=== PATIENT | female | born 1995 | race Two or more races ===

== ENCOUNTER 2025-05-16 13:12 | Outpatient (AMB) | payer MEDICAID, SELFPAY ==
--- NOTE | 2025-05-16 13:35 | OBCLNT_ITS ---
Vital Signs 05/16/25 13:48 Height 1.6 m Height Method Stated Weight 54.544 kg Weight Measurement Method Standing Scale BMI 21.3 BP 101/62 Blood Pressure Source Automatic Cuff Blood Pressure Location Left Upper Arm Position Sitting Respiration 16 Pulse 81 Pulse Source Monitor Temp 98 F Temp Source Oral Pulse Oximetry (%) 98 Oxygen Delivery Method Room Air Allergies/Home Meds Allergies & Medications Allergies No Known Allergies Allergy (Verified 05/16/25 13:50) Medication Reconciliation Vitamin * 1 tab PO QDAY #0 tabs 10/11/16 [History Confirmed 05/16/25] ferrous sulfate 325 mg (65 mg iron) tablet (Feosol) 325 mg PO QDAY #0 tabs 10/11/16 [History Confirmed 05/16/25] doxylamine 10 mg-pyridoxine (vit B6) 10 mg tablet,delayed release (Diclegis) 1 tab PO TID #90 tabs 05/16/25 [Rx] Intake Visit Data Collection New Patient or Established: Established Patient (seen at [facility] within 3 years) Reason for Visit:: INITIAL CARE Seen by Clinical Staff ONLY (RN/MA): No Electroencephalographic Technician Required: No Do You Feel Safe at Home: Yes Authorities Contacted: N/A PCP or OBGYN visit in last 3 months: Yes Hx Now: Yes Are you currently on any form of Control: No Pain Present Currently: No Pain Scale Used: Dueñas-Mederos/Numerical Pain scale:: 0 Smoking Status Smoking Status: Never smoker Immunizations Flu Vaccine in the Last 12 Months: No Flu Vaccine Exclusion Criteria: Refused by Patient Questionnaires Covid-19 Vaccine Questionnaire Has patient been vacinated for Covid-19 Have you been vacinated for Covid-19: No PHQ-9 PHQ-2 Over the last 2 weeks, how often have you been bothered by any of the following problems? 1. Little interest or pleasure in doing things: not at all 2. Feeling down, depressed, or hopeless: not at all Total score: 0 PHQ-9 3. Trouble falling or staying asleep, or sleeping too much: Not at all 4. Feeling tired or having little energy: Not at all 5. Poor appetite or overeating: Not at all 6. Feeling bad about yourself - or that you are a failure or have let yourself or your family down: Not at all 7. Trouble concentrating on things, such as reading the newspaper or watching television: Not at all 8. Moving or speaking so slowly that other people could have noticed? - Or the opposite - being so fidgety or restless that you have been moving around a lot more than usual: not at all 9. Thoughts that you would be better off or of hurting yourself in some way: Not at all Total score: 0 Source: Developed by Drs. David Munoz, Berna Craven, Stephan Martins and colleagues, with an educational amber from [employer]. Depression screen completed yes Social History Living Situation History Marital Status: Lives With: Family Housing: House Tobacco History Smoking Status: Never smoker Second Hand Smoke Exposure: No Alcohol History Alcohol Intake: Never Domestic Abuse History Do You Feel Safe at Home: Yes History of Present Illness HPI Narrative ?29 Years old G4?P3?at gestational age 8 weeks ?based on last menstrual period of dated/ previous 2 sections No complaints so far Here for first visit LPS LMP 03/21/2025 Ultrasound medical problems Allergies Surgical history social history OB Initial Visit OB Flowsheet OB Flowsheet Initial Weight: Not Recorded Date -?-?-?-?-?-?-?-?-?-?-?-?- EGA Weight BP Alb Glu CTX Pres Fundal ht FHR Mov Dilation Station Effacement Hx Notes Visit Note 05/16/25 -?-?-?-?-?-?-?-?-?-?-?-?- 8w 0d 54.544 kg 101/62 168 Menstrual History Menstrual reliability: definite Flow: normal Menstrual regularity: regular Monthly: Yes Age at menarche: 10 On control pills at conception: No Associated symptoms (LMP): Reports nausea, fatigue and breast tenderness OB History : 4 Para: 3 # of Living Children: 3 Delivery History 1st : date: 07/20/11 sex: male Delivery type: vaginal Delivery complications: 4TH DEGREE LACERATION History of depression before or after : No 2nd : date: 04/10/14 sex: female Delivery type: Delivery complications: NONE History of depression before or after : No 3rd : date: 01/17/17 sex: female Delivery type: Delivery complications: NONE History of depression before or after : No Infection History & Risk Evaluation History of STDs: none Genetic Screening & History Genetic Screening/Teratology Counseling - Includes patient, baby's father, or anyone in either family with: 1. Patient's age 35 years or older as of estimated date of delivery: No 2. Thalassemia (Syriac, Khmer, Mediterranean, or Background); MCV less than 80: No 3. Neural Tube Defect (Meningomyelocele, Spina Bifida, or Anencephaly): No 4. Congenital Heart Defect: No 5. Down Syndrome: No 6. David-Sachs (Ashkenazi Catholic, Cajun, German [place]): No 7. Bertha Disease (Ashkenazi Catholic): No 8. Familial Dysautonomia (Ashkenazi Catholic): No 9. Sickle Cell Disease or Trait (): No 10. Hemophilia or other blood disorders: No 11. Muscular Dystrophy: No 12. Cystic Fibrosis: No 13. [place]'s Chorea: No 14. Mental Retardation/Autism: No 15. Other inherited genetic or chromosomal disorder: No 16. Maternal Metabolic Disorder (EG,TYPE 1 Diabetes, PKU): No 17. Patient or baby's father had a child with defects not listed above: No 18. Recurrent loss or a stillbirth: No 19. Medications (including supplements, vitamins, herbs or otc drugs)/illicit/recreational drugs/alcohol since last menstrual period: No 20. Any other: No Infection History 1. Live with someone with TB or exposed to TB: No 2. Rash or viral illness since last menstrual period: No 3. Hepatitis B,C: No Other (see comments) Source: [employer] Review of Systems Review of Systems Systems Reviewed: All systems reviewed, normal except as documented Constitutional Constitutional: Reports fatigue Gastrointestinal Gastrointestinal: Reports system reviewed and no additional complaints, except as documented and Reports nausea Endocrine Endocrine: Reports fatigue Exam Narrative Physical exam: Alert and oriented x 3 no shortness of breath Pain no chest pain no palpitations Chest clear bilaterally no additional sounds, no wheezing no rales CVS regular rate and rhythm No CVAT Abdomen nontender, normal bowel sounds No guarding no rigidity No hernias Office Procedures OBC Clinic LOC & Office Proc's Nursing/Assessment Patient Status: Established Patient OB Clinic Nursing Assessment: Medication Reconciliation, Update PMH in EMR and Vital Signs OB Clinic Coordination of Care: Complex Care and Chronic Disease 1-5, Consent,records obtained, informed consent, Education Simp Pt/Fam, 1 Ins Authorization, Lab and Imaging orders, Results/Orders obtained and Staff clarify orders Special Needs: Heart tones Established Patient Charge Established Patient Point Assignment: 150 Established Patient Point Charge: EP Level 4 (120-155) Assessment & Plan Diagnosis / Problem List (1) Previous section: Status: Acute (2) : Status: Acute Qualifiers: Weeks of gestation: 8 weeks Qualified Code(s): Z3A.08 - 8 weeks g estation of (3) Nausea & vomiting: Status: Acute Assessment and Plan: 29 years old with previous 2 c sections here for initial Ob and is 8 weeks today / ordered Diclegis and also NIPT/ Carrier screen and also first trimester labs follow up 4 weeks Tubal sterilization consent after 20 weeks if desires Plan first trimester labs and NIPT and carrier screening call in Diclegis and follow up in 4 weeks
[2025-05-16 13:48] VITALS: BP 101/62; PULSE 81; RESP 16; TEMP 36.6; O2SAT 98; BMI 21.3
== END 2025-05-16 14:51 | disposition home or self-care (01) ==
LOC: HODSOBC 13:12
PROVIDERS: Supervising Provider Obstetrics & Gynecology; Visit Provider Obstetrics & Gynecology
DX: O09.291 Supervision of pregnancy with other poor reproductive or obstetric history, first trimester (principal); O34.219 Maternal care for unspecified type scar from previous cesarean delivery; O99.891 Other specified diseases and conditions complicating pregnancy; O21.9 Vomiting of pregnancy, unspecified; Z3A.08 8 weeks gestation of pregnancy
CPT/HCPCS: 99214; G0463

== ENCOUNTER 2025-05-24 23:56 | Emergency (ER) | payer MEDICAID, SELFPAY ==
[2025-05-24 23:57] VITALS: BMI 22.3
[2025-05-25 01:04] VITALS: BP 105/69; PULSE 77; RESP 18; TEMP 36.9; O2SAT 99
--- NOTE | 2025-05-25 01:08 | XR_ITS ---
Examination: Complete OB ultrasound, less than 14 weeks, transabdominal Date and time of exam: May 25, 2025, 0139 hours INDICATIONS: Pelvic cramping and vaginal bleeding beginning last night Technique: Obstetrical ultrasound images less than 14 weeks performed via transabdominal imaging Findings: A normal shaped single intrauterine gestation is present in the uterus. CRL 2.7 cm corresponds to 9 weeks 3 days gestational age Cardiac motion 164 bpm Ultrasonographic survey of visible and placental structures unremarkable. Amniotic fluid volume appears appropriate for this estimated gestational age. Right ovary 3.3 cm arterial flow Left ovary 3.1 cm arterial flow IMPRESSION: Viable intrauterine gestation 9 weeks 3 days.
--- NOTE | 2025-05-25 01:09 | PD.EDRME ---
Rapid Medical Screening Exam RME Arrival date/time: 05/24/25 23:56 This is a case of 29-year-old female with no medical history came into the emergency room due to vaginal bleeding and pelvic cramping patient is 9 weeks 4 para 3 Chief Complaint: Vaginal Bleeding Time Seen by Provider: 05/25/25 01:10 Vital signs: Vital Signs Temperature 98.5 F 05/25/25 01:04 Pulse Rate 77 05/25/25 01:04 Respiratory Rate 18 05/25/25 01:04 Blood Pressure 105/69 05/25/25 01:04 Pulse Oximetry (%) 99 05/25/25 01:04 Oxygen Delivery Method Room Air 05/25/25 01:04 Exam: Abdominal soft no normoactive bowel sounds no guarding no rebound no rigidity no tenderness Clinical Impression: Vaginal bleeding in
[2025-05-25 01:14] LABS: Basophils # (Auto) 0.0 Thou/mm3 (0.0-0.2); Basophils % (Auto) 0 % (0-2.5); Eosinophils # (Auto) 0.1 Thou/mm3 (0.0-0.5); Eosinophils % (Auto) 1 % (0-10); Hematocrit 32.5 % (36.0-46.0); Hemoglobin 11.3 g/dL (12.0-16.0); Immature Granulocytes Auto 0.02 Thou/mm3 (0.00-0.00); Lymphocytes # (Auto) 2.5 Thou/mm3 (1.0-4.8); Lymphocytes % (Auto) 25 % (10-50); Mean Corpuscular HGB Conc 34.8 g/dl (31.0-37.0); Mean Corpuscular Hemoglobin 31.2 pg (25.0-35.0); Mean Corpuscular Volume 90 fL (80-100); Monocytes # (Auto) 0.7 Thou/mm3 (0.0-0.8); Monocytes % (Auto) 7 % (0-12); Neutrophils # (Auto) 6.7 Thou/mm3 (1.8-7.7); Neutrophils % (Auto) 66 % (37-80); Nucleated Red Blood Cell # 0.00 Thou/mm3 (0.00-0.00); Nucleated Red Blood Cell % 0 /100 WBC (0); Platelet Count 147 Thou/mm3 (140-440); RDW Standard Deviation 41.0 fL (36.4-46.3); Red Blood Count 3.62 Miln/mm3 (4.00-5.20); White Blood Count 10.1 Thou/mm3 (3.6-11.0)
[2025-05-25 01:39] LABS: Alanine Aminotransferase 21 U/L (10-49); Albumin, Serum 4.3 gm/dL (3.5-5.0); Albumin/Globulin Ratio 1.9 (1.2-2.2); Alkaline Phosphatase 33 U/L (46-116); Anion Gap 8 (7-16); Aspartate Amino Transferase 24 U/L (0-34); BUN/Creatinine Ratio 23 Ratio (12-20); Bilirubin,Total 0.4 mg/dL (0.3-1.2); Blood Urea Nitrogen 14 mg/dL (9-23); Calcium 8.9 mg/dL (8.3-10.6); Calcium (Corrected) 8.9 mg/dL (8.5-10.1); Carbon Dioxide 24.1 mMol/L (20.0-31.0); Chloride 107 mMol/L (98-107); Creatinine (Component) 0.6 mg/dL (0.6-1.3); Estimated Creatinine Clearance 107.4 mL/min (>60); Globulin 2.3 gm/dL (2.3-3.5); Glucose 92 mg/dL (74-106); Osmolality,Calculated 278 (275-295); Potassium 3.8 mMol/L (3.4-5.1); Sodium 139 mMol/L (136-145); Total Protein 6.6 gm/dL (5.7-8.2); eGFR > 60 See Note
--- NOTE | 2025-05-25 02:47 | PRELIM_ITS ---
Obstetric ultrasound (transabdominal). May 25, 2025 at 0139 hours Clinical history: Vaginal bleeding.LMP: 03/21/2025. Technique: Real-time ultrasound was performed using Duplex scanning including arterial inflow, venous outflow, color and spectral Doppler analysis of both ovaries. Comparison: No prior study is available for comparison. Findings: There is an intrauterine gestation with a single live fetus of mean gestational age 9 weeks and 3 days (CRL= 2.7 cm). The yolk sac is demonstrated (not measured on the submitted images). cardiac activity is present at heart rate of 164 beats per minute. Estimated due date by ultrasound is 12/25/2025. The uterus is anteflexed and measures 13.5 x 7.5 x 8.9 cm. The right ovary measures 3.3 x 1.9 x 2.7 cm and demonstrates multiple follicles. The left ovary measures 3.1 x 1.5 x 2.3 cm and demonstrates multiple follicles. Both ovaries demonstrate color flow and spectral waveforms on Doppler evaluation. No evidence of adnexal mass. There is no free fluid in the pelvis. Impression: Intrauterine gestation with a single live fetus of mean gestational age 9 weeks and 3 days. Report Electronically Signed By: Parveen Rubio 05/25/2025 2:46:38 AM [EST]
--- NOTE | 2025-05-25 03:08 | PD.EDVAGBL ---
ED OB Contraction Preg RMI/HPI General Chief complaint: Vaginal Bleeding Stated complaint: 9 WKS PREG VAG BLEEDING Time Seen by Provider: 05/25/25 01:10 Arrival date/time: 05/24/25 23:56 This is a case of 29-year-old female with no medical history came in in the emergency room due to vaginal bleeding today with pelvic cramping patient is 9 weeks 1 para 0 due to persistence of the symptoms this patient decided to sought consult here in the emergency room Limitations: no limitations RME / HPI RME / HPI Narrative: 05/24/25 23:56 This is a case of 29-year-old female with no medical history came into the emergency room due to vaginal bleeding and pelvic cramping patient is 9 weeks 4 para 3 Exam: Abdominal soft no normoactive bowel sounds no guarding no rebound no rigidity no tenderness Impression: Vaginal bleeding in Related Data Home Medications ?Medication ?Instructions ?Recorded ?Confirmed Vitamin * 1 tab PO QDAY #0 tabs 10/11/16 05/16/25 ferrous sulfate 325 mg (65 mg 325 mg PO QDAY #0 tabs 10/11/16 05/16/25 iron) tablet (Feosol) Previous Rx's ?Medication ?Instructions ?Recorded doxylamine 10 mg-pyridoxine (vit 1 tab PO TID #90 tabs 05/16/25 B6) 10 mg tablet,delayed release (Diclegis) Allergies Allergy/AdvReac Type Severity Reaction Status Date / Time No Known Allergies Allergy Verified 05/25/25 00:01 Review of Systems Review of Systems Systems Reviewed: All systems reviewed, normal except as documented Constitutional Constitutional: Reports system reviewed and no additional complaints, except as documented and Reports as per HPI Cardiovascular Cardiovascular: Reports system reviewed and no additional complaints, except as documented and Reports as per HPI Respiratory Respiratory: Reports system reviewed and no additional complaints, except as documented and Reports as per HPI Gastrointestinal Gastrointestinal: Reports system reviewed and no additional complaints, except as documented Musculoskeletal Musculoskeletal: Reports system reviewed and no additional complaints, except as documented and Reports as per HPI Neurologic Neurologic: Reports system reviewed and no additional complaints, except as documented and Reports as per HPI Past Medical History Past Medical History OTHER HISTORY: Positive Blood Transfusions Social History SMOKING STATUS: Never smoker SECOND HAND EXPOSURE: No ED Exam General Limitations: Present no limitations General appearance: Present alert, in no apparent distress and other (Patient is awake alert oriented not in distress nontoxic looking well-hydrated well-nourished) Head Head exam: Present atraumatic, normocephalic and normal inspection Eye Eye exam: Present normal appearance, PERRL and EOMI ENT ENT exam: Present normal exam, normal oropharynx and mucous membranes moist Neck Neck exam: Present normal inspection, full ROM and trachea midline; Absent tenderness, meningismus, lymphadenopathy or thyromegaly Chest Chest inspection: Present normal inspection and symmetric chest wall rise Respiratory Respiratory exam: Present normal lung sounds bilaterally; Absent respiratory distress, wheezes, stridor, accessory muscle use or prolonged expiratory phase Cardiovascular Cardiovascular exam: Present regular rate, normal rhythm and normal heart sounds; Absent bradycardia, tachycardia, irregular rhythm, systolic murmur or diastolic murmur Abdominal Exam Abdominal exam: Present soft, normal bowel sounds and other (Gravid uterus); Absent distention, tenderness, guarding, rebound, rigidity, diminished bowel sounds, hyperactive bowel sounds, hypoactive bowel sounds, obturator sign, Mary's sign, Rovsing's sign, tenderness at McBurney's Point, pulsatile mass or hernia Extremities Exam Extremities exam: Present normal inspection and full ROM Back Exam Back exam: Present normal inspection and full ROM Neurological Exam Neurological exam: Present alert, oriented X3, CN II-XII intact, normal gait and reflexes normal; Absent motor sensory deficit Psychiatric Psychiatric exam: Present normal affect and normal mood Skin Skin exam: Present warm, dry, intact, normal color and other (Excellent skin turgor) Course Quality Measures none Orders Category Date Time Status Bedside Blood Glucose Q1HR Care 05/25/25 00:28 Active NPO NEEDED Care 05/25/25 00:28 Active US OB <= 14 weeks fetus Stat Exams 05/25/25 01:08 Taken ABO/RH Type Stat Lab 05/25/25 00:57 Completed Beta HCG,Quantitative Stat Lab 05/25/25 00:57 Completed CBC [CBC] Stat Lab 05/25/25 00:57 Completed CMP [Comprehensive Metabolic Panel] Stat Lab 05/25/25 00:57 Completed Urinalysis, C/S if Indicated Stat Lab 05/25/25 00:29 Ordered Vital Signs Vital signs: Vital Signs Temperature 98.5 F 05/25/25 01:04 Pulse Rate 77 05/25/25 01:04 Respiratory Rate 18 05/25/25 01:04 Blood Pressure 105/69 05/25/25 01:04 Pulse Oximetry (%) 99 05/25/25 01:04 Oxygen Delivery Method Room Air 05/25/25 01:04 Oxygen saturation is 99% on room air Vaginal Bleeding MDM Narrative MDM Narrative: This is a case of 29-year-old female with no medical history came in in the emergency room due to vaginal bleeding today with pelvic cramping patient is 9 weeks 1 para 0 due to persistence of the symptoms this patient decided to sought consult here in the emergency room physical examination patient is awake alert oriented not in distress nontoxic looking well-hydrated well-nourished abdominal exam is benign nonsurgical no guarding no rebound no rigidity mild tenderness of suprapubic area negative psoas negative obturator negative Rovsing's negative McBurney's negative Mary sign negative CVA tenderness blood test showed no leukocytosis no anemia kidney and liver function is normal no electrolyte imbalance urinalysis is normal patient beta-hCG [id number] patient is A+ on blood type patient ultrasound showed intrauterine with single live fetus of 9 weeks and 3 days with heart tone of 164/min based on my physical examination and history patient symptoms suggestive of threatened patient was advised to follow-up with PCP in 2 days for reevaluation and to be referred to OB numerical control router operator for further evaluation and treatment of threatened and for checkup for any worsening symptoms or any emergent concern return emergently in the emergency room or call 911 continue multivitamins keep hydrated no sex until cleared by primary care physician is advised Patient was discharged with comfortable condition walking with stable gait. Patient verbalized no further complains explained diagnosis and answered patient question. Patient is comfortable with the proposed management plan including the need to follow up with his/her primary care physician and any specialist if applicable Discussed patient for any urgent condition or worsening sx, He/She needed to go to emergency room immediately or call 911. Patient acknowledge the responsibility to follow up as instructed and to monitor her/his symptoms. For any persistence of the symptoms for more than 3-5 days return precaution advised. Discussed the result of the test and was given printed discharge instruction Patient data External records reviewed:: [facility] previous records Clinical information provided by:: patient Social determinants that could affect healthcare access:: none Patient has the following chronic illnesses:: None How is presenting disease/condition affected by chronic disease/condition?: no chronic disease Evaluation data The following diagnostics were reviewed and interpreted by me:: lab results and radiology exam(s) Lab and/or radiology exams considered but not ordered:: Reviewed Interpretation Summary: Reviewed Medications / Prescriptions Medications or Prescriptions considered but not ordered:: Given Medication administrations:: Given Consultations Consultation(s) initiated? (list below): No Diagnosis Vaginal Bleeding Differential Diagnosis: missed , threatened , incomplete , ectopic without intrauterine and vaginal bleeding Most likely diagnosis given after review of the tests above:: Threatened in early Admission Indicated Admission indicated?: not indicated Explain why admission is indicated or not indicated:: Not indicated Admission Request Was there a request for admission?: No Disposition Plan Disposition Plan: Discharge Discharge Attestation Discharge Attestation: The patient and all family members were given an opportunity to ask questions and understood the discharge instructions. Discharge instructions specifically effects, indications for sooner follow up or return to the emergency department, and the expected course of current diagnosis. Patient condition: Stable Discharge Plan Plan Patient Disposition: HOME (Self Care) Patient condition on transfer: Stable Prescriptions/Referrals Prescriptions/Med Rec: No Action doxylamine-pyridoxine (vit B6) [Diclegis] 10-10 mg tablet,delayed release (DR/EC) 1 tab PO TID Qty: 90 0RF Vitamin * 1 EACH tablet 1 tab PO QDAY Qty: 0 ferrous sulfate [Feosol] 1 TAB tablet 325 mg PO QDAY Qty: 0 Referrals: Aldo Pollock MD [Primary Care Provider, Family Practice] - In 1 week Problem List Clinical Impression: Threatened in early Patient/Caregiver Discharge Instructions Education Materials: ED Possible Miscarriage ... Additional Instructions: Follow-up with your primary care physician in 2 days for reevaluation and to be referred to OB numerical control router operator for further evaluation and treatment of threatened in early it is very important to see a OB numerical control router operator in 2 days for reevaluation of threatened in early and checkup if not seen in 2 days return to the emergency room for repeat beta-hCG and pelvic ultrasound for any worsening symptoms or any emergent concern return precaution in the ER is advised continue to take your multivitamins increase water intake keep hydrated no sex until cleared by your primary care physician pelvic rest is advised Print Language: [place] Stand Alone Forms: [employer] Patient Portal Info Letter PA/NETWORK OPERATIONS ANALYST Supervising Physician PA/NETWORK OPERATIONS ANALYST Supervising Physician: Dr. Sneha Dave
== END 2025-05-25 05:29 | disposition home or self-care (01) ==
PROVIDERS: Emergency Provider Emergency Medicine; PCP Family Medicine
DX: O20.0 Threatened abortion (principal); Z3A.09 9 weeks gestation of pregnancy
CPT/HCPCS: 36415; 76801; 80053; 81001; 84702; 85025; 86900; 86901; 99283

== ENCOUNTER 2025-05-28 08:13 | Outpatient (AMB) | payer MEDICAID, SELFPAY ==
[2025-05-28 08:39] VITALS: BP 106/72; PULSE 95; RESP 18; TEMP 36.7; O2SAT 98; BMI 22.4
--- NOTE | 2025-05-28 08:39 | OBCLNT_ITS ---
Vital Signs 05/28/25 08:39 Height 1.57 m Height Method Stated Weight 55.111 kg Weight Measurement Method Standing Scale BMI 22.4 BP 106/72 Blood Pressure Source Automatic Cuff Blood Pressure Location Left Upper Arm Position Sitting Respiration 18 Pulse 95 Pulse Source Monitor Temp 98.1 F Temp Source Oral Pulse Oximetry (%) 98 Oxygen Delivery Method Room Air Allergies/Home Meds Allergies & Medications Allergies No Known Allergies Allergy (Verified 05/28/25 08:40) Medication Reconciliation Vitamin * 1 tab PO QDAY #0 tabs 10/11/16 [History Confirmed 05/28/25] ferrous sulfate 325 mg (65 mg iron) tablet (Feosol) 325 mg PO QDAY #0 tabs 10/11/16 [History Confirmed 05/28/25] doxylamine 10 mg-pyridoxine (vit B6) 10 mg tablet,delayed release (Diclegis) 1 tab PO TID #90 tabs 05/16/25 [Rx Confirmed 05/28/25] Intake Visit Data Collection New Patient or Established: Established Patient (seen at [facility] within 3 years) Reason for Visit:: CARE Seen by Clinical Staff ONLY (RN/MA): No Wagon Person Required: No Do You Feel Safe at Home: Yes Authorities Contacted: N/A PCP or OBGYN visit in last 3 months: Yes Hx Now: Yes Are you currently on any form of Control: No Pain Present Currently: No Pain Scale Used: Dueñas-Mederos/Numerical Pain scale:: 0 Smoking Status Smoking Status: Never smoker Immunizations Flu Vaccine in the Last 12 Months: No Flu Vaccine Exclusion Criteria: Refused by Patient Questionnaires Covid-19 Vaccine Questionnaire Has patient been vacinated for Covid-19 Have you been vacinated for Covid-19: No PHQ-9 PHQ-2 Over the last 2 weeks, how often have you been bothered by any of the following problems? 1. Little interest or pleasure in doing things: not at all 2. Feeling down, depressed, or hopeless: not at all Total score: 0 PHQ-9 3. Trouble falling or staying asleep, or sleeping too much: Not at all 4. Feeling tired or having little energy: Not at all 5. Poor appetite or overeating: Not at all 6. Feeling bad about yourself - or that you are a failure or have let yourself or your family down: Not at all 7. Trouble concentrating on things, such as reading the newspaper or watching television: Not at all 8. Moving or speaking so slowly that other people could have noticed? - Or the opposite - being so fidgety or restless that you have been moving around a lot more than usual: not at all 9. Thoughts that you would be better off or of hurting yourself in some way: Not at all Total score: 0 Source: Developed by Drs. David Munoz, Berna Craven, Stephan Martins and colleagues, with an educational amber from [employer]. Depression screen completed yes Social History Living Situation History Lives With: Family Housing: House Tobacco History Smoking Status: Never smoker Second Hand Smoke Exposure: No Alcohol History Alcohol Intake: Never Domestic Abuse History Do You Feel Safe at Home: Yes History of Present Illness HPI Narrative visit and ER follow-up for pelvic cramping and vaginal bleeding that started the night before ER visit on 05-25-2025 Staci Prado is a 29-year-old at 9 weeks and 5 days gestation presenting for visit and emergency room follow-up after experiencing vaginal bleeding and pelvic cramping. The patient was seen in the emergency room on May 25, 2025, after developing pelvic cramping and vaginal bleeding that started the previous night. She reports that after attending a football game and returning home, she noticed bright red blood on her underwear and in the toilet when using the restroom. This was described as a single episode of bleeding that has not recurred since that time. The patient has a significant obstetric history including one vaginal delivery complicated by a fourth-degree laceration, followed by two deliveries. She is currently taking vitamins and reports no other current issues. This represents only her second visit for this , having previously seen Dr. Alvarez in this office for her initial visit. 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 She reports that after attending a football game and returning home, she noticed bright red blood on her underwear and in the toilet when using the restroom. This was described as a single episode of bleeding that has not recurred since that time. - Activity restrictions for 2 weeks from bleeding episode (avoid lifting weights, over-straining, excessive physical activity) - Work excuse provided until after Thank sgiving - Follow-up appointment scheduled in 3 w [facility] with Dr. Alvarez - Continue vitamins - Return if bleeding recurs CIERRA Calculator Estimated Delivery Date Method Current WG Current Estimate 12/26/25 LMP (Certain) 9w 5d Notes Visit Date: 05/28/25 Last Updated by: Jed Dueñas MD - Obstetric ultrasound (05-25-2025): Viable intrauterine at 9 weeks 3 days gestational age, heart rate 164 bpm, placenta normal appearance - Obstetric ultrasound (05-28-2025): heart rate 165 bpm, normal gestational sac appearance, placenta normal appearance Visit Date: 05/16/25 Last Updated by: Vinita Alvarez MD / previous 2 c sections and 8 weeks by LMP of 03/21/2025 C sections done as first vaginal delivery had a 4 th degree laceration has some nausea Bedside US today C/w 8.3 weeks [facility]CA present first trimester labs and NIPT and Carrier screening ordered/ call in diclegis / follow up in 4 weeks Exam General General Appearance: alert, in no apparent distress and healthy appearing Head Head exam: atraumatic Neck Neck exam: Present normal inspection and trachea midline Chest Chest inspection: Present normal inspection and symmetric chest wall rise External exam: Present normal external exam; Absent tenderness Neuro Neurological exam: Present oriented X3 Psych Psychiatric exam: Present normal affect and normal mood Office Procedures OBC Clinic LOC & Office Proc's Nursing/Assessment Patient Status: Established Patient OB Clinic Nursing Assessment: Medication Reconciliation, Update PMH in EMR and Vital Signs OB Clinic Coordination of Care: Complex Care and Chronic Disease 1-5, Consent,records obtained, informed consent, Education Simp Pt/Fam, 1 Ins Authorization, Lab and Imaging orders, Results/Orders obtained and Staff clarify orders Special Needs: Heart tones Established Patient Charge Established Patient Point Assignment: 150 Established Patient Point Charge: EP Level 4 (120-155) Assessment & Plan Diagnosis / Problem List (1) Threatened in early : Status: Acute (2) Previous section: Status: Acute Plan First trimester vaginal bleeding Assessment: Patient experienced one episode of bright red vaginal bleeding with pelvic cramping on 05-24-2025 after attending a football game. ER evaluation on 05-25-2025 revealed viable intrauterine at 9 weeks 3 days with he art rate of 164 bpm on ultrasound. Current ultrasound shows continued viability with heart rate of 165 bpm, normal round gestational sac, and normal- appearing placenta. The bleeding has completely resolved since the initial episode. This presentation is consistent with threatened that has stabilized, likely related to minor placental edge separation from physical activity. Plan: - Activity restrictions for 2 weeks from bleeding episode (avoid lifting weights, over-straining, excessive physical activity) - Work excuse provided until after Thanksgi - Follow-up appointment scheduled in [address] Alvarez - Continue vitamins - Return if bleeding recurs , intrauterine, 9 weeks 5 days Plan: - Continue routine care - Follow-up appointment scheduled in [address] Alvarez
== END 2025-05-28 09:02 | disposition home or self-care (01) ==
LOC: HODSOBC 08:13
PROVIDERS: PCP Family Medicine; Referring Provider Family Medicine; Supervising Provider Obstetrics & Gynecology; Visit Provider Obstetrics & Gynecology
DX: O09.891 Supervision of other high risk pregnancies, first trimester (principal); O20.0 Threatened abortion; O09.291 Supervision of pregnancy with other poor reproductive or obstetric history, first trimester; O34.219 Maternal care for unspecified type scar from previous cesarean delivery; Z3A.09 9 weeks gestation of pregnancy
CPT/HCPCS: 99214; G0463

== ENCOUNTER 2025-07-02 09:58 | Outpatient (AMB) | payer MEDICAID, SELFPAY ==
[2025-07-02 10:15] VITALS: BP 97/60; PULSE 98; RESP 18; TEMP 36.7; O2SAT 98; BMI 23.3
--- NOTE | 2025-07-02 10:15 | OBCLNT_ITS ---
Vital Signs 07/02/25 10:15 Height 1.57 m Height Method Stated Weight 57.663 kg Weight Measurement Method Standing Scale BMI 23.3 BP 97/60 Blood Pressure Source Automatic Cuff Blood Pressure Location Left Upper Arm Position Sitting Respiration 18 Pulse 98 Pulse Source Monitor Temp 98.1 F Temp Source Oral Pulse Oximetry (%) 98 Oxygen Delivery Method Room Air Allergies/Home Meds Allergies & Medications Allergies No Known Allergies Allergy (Verified 07/02/25 10:16) Medication Reconciliation Vitamin * 1 tab PO QDAY #0 tabs 10/11/16 [History Confirmed 07/02/25] ferrous sulfate 325 mg (65 mg iron) tablet (Feosol) 325 mg PO QDAY #0 tabs 10/11/16 [History Confirmed 07/02/25] doxylamine 10 mg-pyridoxine (vit B6) 10 mg tablet,delayed release (Diclegis) 1 tab PO TID #90 tabs 05/16/25 [Rx Confirmed 07/02/25] Immunizations Immunizations Flu Vaccine in the Last 12 Months: Yes Flu Vaccine Exclusion Criteria: Already Received Care OB Visit Log OB Flowsheet Initial Weight: Not Recorded Date -?-?-?-?-?-?-?-?-?-?-?-?- EGA Weight BP Alb Glu CTX Pres Fundal ht FHR Mov Dilation Station Effacement Hx Notes Visit Note 05/16/25 -?-?-?-?-?-?-?-?-?-?-?-?- 8w 0d 54.544 kg 101/62 168 05/28/25 -?-?-?-?-?-?-?-?-?-?-?-?- 9w 5d 55.111 kg 106/72 165 The patient was seen in the emergency room on May 25, 2025, after developing pelvic cramping and vaginal bleeding that started the previous night. She reports that after attending a football game and returning home, she noticed bright red blood on her underwear and in the toilet when using the restroom. This was described as a single episode of bleeding that has not recurred since that time. - Activity restrictions for 2 weeks from bleeding episode (avoid lifting weights, over-straining, excessive physical activity) - Work excuse provided until after Thank sgiving - Follow-up appointment scheduled in [address] Alvarez - Continue vitamins - Return if bleeding recurs 07/02/25 -?-?-?-?-?-?-?-?-?-?-?-?- 14w 5d 57.663 kg 97/60 15 150 CIERRA Calculator Estimated Delivery Date Method Current WG Current Estimate 12/26/25 LMP (Certain) 14w 5d Notes Visit Date: 07/02/25 Last Updated by: Vinita Alvarez MD / previous 2 c sections and 8 weeks by LMP of 03/21/2025 C sections done as first vaginal delivery had a 4 th degree laceration has some nausea and is on Diclegis doing well / does not want to know the gender and already has the envelope ./ Downs screen is negative and carrier screen is negative/ Order MSAFP and also she is A positive, Rubella NI and Platelets are at 123 K / low / will repeat CBC HbSag/ HIV negative, RPR NR / GC and Ct negative Hep C negative Visit Date: 05/28/25 Last Updated by: Jed Dueñas MD - Obstetric ultrasound (05-25-2025): Viable intrauterine at 9 weeks 3 days gestational age, heart rate 164 bpm, placenta normal appearance - Obstetric ultrasound (05-28-2025): heart rate 165 bpm, normal gestational sac appearance, placenta normal appearance Visit Date: 05/16/25 Last Updated by: Vinita Alvarez MD / previous 2 c sections and 8 weeks by LMP of 03/21/2025 C sections done as first vaginal delivery had a 4 th degree laceration has some nausea Bedside US today C/w 8.3 weeks [facility] present first trimester labs and NIPT and Carrier screening ordered/ call in diclegis / follow up in 4 weeks Office Procedures OBC Clinic LOC & Office Proc's Nursing/Assessment Patient Status: Established Patient OB Clinic Nursing Assessment: Medication Reconciliation, Update PMH in EMR and Vital Signs OB Clinic Coordination of Care: Complex Care and Chronic Disease 1-5, Consent,records obtained, informed consent, Education Simp Pt/Fam, 1 Ins Auth orization, Lab and Imaging orders, Results/Orders obtained and Staff clarify orders Special Needs: Heart tones Established Patient Charge Established Patient Point Assignment: 150 Established Patient Point Charge: EP Level 4 (120-155) Assessment & Plan Diagnosis / Problem List (1) Previous section: Status: Acute (2) : Status: Acute Qualifiers: Weeks of gestation: 8 weeks Qualified Code(s): Z3A.08 - 8 weeks gestation of (3) Thrombocytopenia: Status: Acute Additional Plan / previous 2 c sections and 8 weeks by LMP of 03/21/2025 C sections done as first vaginal delivery had a 4 th degree laceration has some nausea and is on Diclegis doing well / does not want to know the gender and already has the envelope ./ Downs screen is negative and carrier screen is negative/ Order MSAFP and also she is A positive, Rubella NI and Platelets are at 123 K / low / will repeat CBC HbSag/ HIV negative, RPR NR / GC and Ct negative Hep C negative Follow Up: 4
== END 2025-07-02 11:07 | disposition home or self-care (01) ==
LOC: HODSOBC 09:58
PROVIDERS: Supervising Provider Obstetrics & Gynecology; Visit Provider Obstetrics & Gynecology
DX: O09.292 Supervision of pregnancy with other poor reproductive or obstetric history, second trimester (principal); O34.219 Maternal care for unspecified type scar from previous cesarean delivery; O09.892 Supervision of other high risk pregnancies, second trimester; O99.112 Other diseases of the blood and blood-forming organs and certain disorders involving the immune mechanism complicating pregnancy, second trimester; D69.6 Thrombocytopenia, unspecified; Z3A.14 14 weeks gestation of pregnancy
CPT/HCPCS: 99214; G0463